=== PATIENT | male | born 1995 | race Caucasian/White ===

== ENCOUNTER 2021-03-29 09:25 | Emergency (ER) | payer BC ==
[~2021-03-29] VITALS: Ht 182.9 cm; Wt 54.5 kg
[2021-03-29] MEDS ORDERED: FLAGYL 250250 MG/TAB PO (09:39)
[2021-03-29] MEDS ORDERED: CLEOCIN HCL300 MG PO (09:39)
[2021-03-29 09:40] VITALS: TEMP 98.3
[2021-03-29 10:43] LABS: BASO % 0.3 % (0.0-2.0); EOS % 0.1 % (0-4.0); GRAN # 11.4 (1.4-6.5); GRAN % 76.8 % (42.2-75.2); HEMOGLOBIN 15.5 g/dl (13.5-18.0); LYMPH % 13.4 % (20.0-51.0); MEAN CELL VOLUME 93 fl (80.0-100.0); MEAN CORPUSCULAR HEMOGLOBIN 31 pg (27.0-31.0); MEAN CORPUSCULAR HGB CONC 34 g/dl (33.0-37.0); MEAN PLATELET VOLUME 9.1 fl (7.4-10.4); MONO # 1.4 (0.1-0.6); MONO % 9.1 % (1.7-9.3); PLATELET COUNT 288 K/mm3 (130-400); RED BLOOD COUNT 4.97 M/mm3 (4.20-5.60)
[2021-03-29 10:56] LABS: ALBUMIN 4.7 gm/dL (3.5-5.0); BILIRUBIN,TOTAL 0.7 mg/dL (0.0-1.0); CALCIUM 9.4 mg/dL (8.4-10.2); CREATININE, serum 0.8 (0.66-1.25); POTASSIUM 4.7 mmol/L (3.4-5.0); TOTAL PROTEIN 8.1 gm/dL (6.4-8.2)
[2021-03-29 12:52] VITALS: BP 106/65; PULSE 66
== END 2021-03-29 12:52 | disposition home or self-care (01) ==
LOC: COL.ER 09:25
PROVIDERS: Physician Assistant
DX: K12.2 Cellulitis and abscess of mouth (principal); F17.210 Nicotine dependence, cigarettes, uncomplicated; Z88.0 Allergy status to penicillin; Z98.818 Other dental procedure status
CPT/HCPCS: Q9967